=== PATIENT | female | born 1945 | race Caucasian/White ===

== ENCOUNTER 2017-10-15 10:07 | Inpatient (IN) | payer MEDICARE ==
[~2017-10-15] VITALS: Ht 172.7 cm; Wt 65.5 kg
--- NOTE | ~2017-10-15 | EC ---
PATIENT:EMMY SOLIS DATE OF SERVICE: 10/15/17 SEX: F MEDICAL RECORD: [id number] DATE OF : [birth year] LOCATION:D. D.211 AGE OF PATIENT: 72 ADMISSION DATE: 10/15/17 REFERRING PHYSICIAN: INTERPRETING PHYSICIAN: HUMBERTO BANGURA MD ECHOCARDIOGRAM REPORT ECHO CHARGES 4 ECHO COMPLETE Date: CLINICAL DIAGNOSIS: A-FIB ECHOCARDIOGRAPHIC MEASUREMENTS (adult normal given) AC root (d.<3.7cm) 2.7 cm LV Septum d (<1.2 cm> 1.2 cm Valve Excursion 1.6 cm LV Septum (systole) 1.6 cm Left Atria (s.<4.0cm> 4.3 cm LVPW d(<1.2cm) 1.2 cm RV (d.<2.3cm) 3.2 cm LVPW (sytole) 1.8 cm LV diastole(<5.6CM) 5.1 cm MV E-F(>70mm/sec) cm LV systole 3.6 cm LVOT Diameter 1.9 cm MV exc.(>10mm) cm Est.ejection fraction (50-75%) % DOPPLER: LVIT cm/sec A cm/sec E 136 cm/sec LA cm/sec RVSP 34.3 mmHg LVOT 68.0 cm/sec AOP1/2T m/s Asc. Ao 135 cm/sec RVOT 42.0 cm/sec RA cm/sec PA 51.0 cm/sec AV Gradient Peak 7.2 mmHg AV Mean 3.3 mmHg AV Area 1.2 cm MV Gradient Peak 7.0 mmHg MV Mean 2.3 mmHg MV Area cm COMMENTS: Talent Engineer: 1 PORSHA BRADDOCK Lunchroom Aide: 1 Dr. Bangura TAPE# PACS Pericardial Effusion N DATE OF SERVICE: FINDINGS: 1. Left ventricular chamber size is mildly dilated. Left ventricular systolic function is markedly reduced. Overall ejection fraction 20%. 2. Left atrium is enlarged at 4.3 cm. Right atrium and right ventricular chamber sizes are as well mildly dilated. 3. Valvular structures have normal structure and motion. 4. Doppler interrogation reveals moderate mitral regurgitation, moderate tricuspid regurgitation. No other valvular insufficiency or stenosis. ECHOCARDIOGRAM REPORT [id number] EMMY SOLIS Pulmonary systolic pressure is estimated at 34 mmHg. 5. No evidence of pericardial effusion or left ventricular thrombus. TRANSINT:[id number] Voice Confirmation ID: [id number] DOCUMENT ID: [id number] HUMBERTO BANGURA MD at 1056 CC: [id number] DICTATION DATE: 10/16/17 161 PEANUT BUTTER MAKER: 10/16/17 1629 DIS IN 10/19/17 [place] [id number] [place] [id number]
--- NOTE | ~2017-10-15 | CN ---
PATIENT NAME:EMMY ROQUE MEDICAL RECORD: [id number] : [birth year] LOCATION:. D.2112 ADMIT DATE: 10/15/17 ACCOUNT: [id number] CONSULTING PHYSICIAN: HUMBERTO ROSS MD REFERRING PHYSICIAN: JITENDRA FITZGERALD MD DATE OF CONSULTATION: 10/16/2017 DIAGNOSES: 1. Atrial fibrillation with rapid ventricular response. 2. Shortness of breath, dyspnea on exertion. 3. Generalized weakness. HISTORY OF PRESENT ILLNESS: Ms. Roque presents with shortness of breath, dyspnea on exertion, and overall weakness. This has been going on and off since June. She has a history of living in [facility] in 2014. At that time, she had a pulmonary embolus. Since then, she had atrial fibrillation. 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 She went off all the medications. Initially, her ejection fraction after the pulmonary embolus was in the 20% to 25% range. A year later, her ejection fraction was in the 60% range. 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 Since June, she felt on and off episodes of atrial fibrillation; however, over the past month, she has had more episodes that are still on and off and she presents with atrial fibrillation with rapid response. She was started on Cardizem drip. She is still in atrial fibrillation. The rate is controlled. She does agree to take traditional medications at this point. PHYSICAL EXAMINATION: GENERAL APPEARANCE: Well-nourished, well-developed, appears stated age. Level of distress, comfortable. PSYCHIATRIC: Mental status, alert, normal affect. Orientation, oriented to time, place and person. EYES: Lids and conjunctiva, noninjected. No discharge, no pallor. ENT: Lips, teeth, gums, normal dentition. Oropharynx, no cyanosis, no pallor. NECK: Carotid arteries, bilateral normal upstroke, no bruits, no thrills. JUGULAR VEINS: No jugular venous pressure or distention. CERVICAL LYMPH NODES: Nontender, nonenlarged. THYROID: Not enlarged. Nontender. No nodules. LUNGS: Respiratory effort, unlabored. CHEST: Normal curvature. No thoracic deformity. No chest wall tenderness. Percussion, resonant. Auscultation, clear. No wheezes, no rales, no rhonchi. CARDIOVASCULAR: Irregularly irregular in atrial fibrillation. EXTREMITIES: No cyanosis, no edema. Peripheral pulses, full and equal in all extremities, except as noted. No bruits appreciated. ABDOMEN: Soft, nondistended. Normal aorta. No bruit. Nontender. No masses. Liver, nontender, no hepatomegaly. Spleen, nontender, no splenomegaly. MUSCULOSKELETAL: No joint tenderness. No joint swelling. No erythema. NEUROLOGICAL: Normal gait, normal strength, normal tone. SKIN: Warm and dry. OVERALL IMPRESSION: Atrial fibrillation. We will start her on sotalol 120 mg b.i.d., discontinue the Cardizem drip as well, place her on Xarelto and we will see her back in clinic. I do not know how long she has been in atrial CONSULT REPORT [id number] EMMY ROQUE fibrillation this time, so we will plan for anticoagulation for 3 weeks prior to DC cardioversion. She may convert with the sotalol as she has had paroxysms of atrial fibrillation. We will get an echocardiogram today as well and then we will follow up as an outpatient. TRANSINT:[id number] Voice Confirmation ID: [id number] DOCUMENT ID: [id number] HUMBERTO ROSS MD at 1056 CC: [id number] DICTATION DATE: 10/16/17 0810 ESCAPEMENT MATCHER: 10/16/17 1110 DIS IN 10/19/17 [place] [id number] [place] [id number]
[2017-10-15 10:42] LABS: BASOPHILS 0.3 % (0-2); EOSINOPHILS 0.7 % (0-7); HEMATOCRIT 42.9 % (36.0-48.0); IMMATURE GRANULOCYTES 0.2 % (0-5); LYMPHOCYTES 20.1 % (15-50); MCH 33.6 pg (26.0-34.0); MCV 96.2 fL (80.0-100.0); MEAN PLATELET VOLUME 10.2 fL (7.4-10.4); MONOCYTES 7.7 % (2-11); PLATELET COUNT 270 10x3/uL (130-400); RBC 4.46 10x6/uL (4.00-5.40); RDW 13.5 % (11.5-14.5); WBC 9.4 10x3/uL (4.8-10.8)
[2017-10-15 10:55] LABS: INR 1.1 (0.85-1.17); PROTIME 13.8 SECONDS (11.6-15.0)
[2017-10-15 10:57] LABS: D-DIMER-QUANTITATIVE 0.71 ug/mLFEU (0.20-0.54)
[2017-10-15 11:02] LABS: ALBUMIN 3.5 g/dL (3.4-5.0); ALKALINE PHOSPHATASE 101 U/L (46-116); ALT (SGPT) 28 U/L (10-68); BILIRUBIN - TOTAL 0.85 mg/dL (0.2-1.3); CALC OSMOLALITY 284 mosm/kg (275-300); CALCIUM 8.7 mg/dL (8.5-10.1); CARBON DIOXIDE 20.4 mmol/L (21.0-32.0); CHLORIDE - SERUM 105 mmol/L (98-107); CREATININE - SERUM 0.8 mg/dL (0.6-1.3); GLUCOSE 165 mg/dL (74-106); POTASSIUM - SERUM 3.9 mmol/L (3.5-5.1); PROTEIN - SERUM 6.9 g/dL (6.4-8.2); SODIUM 141 mmol/L (136-145); UREA NITROGEN 13 mg/dL (7-18); eGFR NON AFRICAN AMERICAN 75 mL/min (90-120)
[2017-10-15 11:11] LABS: CREATINE KINASE 35 UL (21-215); PRO BNP 3779 pg/mL (0-125); TROPONIN-I < 0.017 ng/mL (0.000-0.060)
[2017-10-15 15:53] LABS: CKMB 0.8 U/L (0.0-3.6); CREATINE KINASE 42 UL (21-215)
[2017-10-15 15:59] LABS: TROPONIN-I 0.016 ng/mL (0.000-0.060)
[2017-10-15 18:00] VITALS: BP 143/93; BMI 25.1
[2017-10-15 21:53] LABS: CKMB 1.5 U/L (0.0-3.6); CREATINE KINASE 142 UL (21-215)
[2017-10-15 22:01] LABS: TROPONIN-I 0.017 ng/mL (0.000-0.060)
[2017-10-15 22:10] VITALS: BP 111/55; BP 158/68
[2017-10-16 03:04] LABS: BASOPHILS 0.3 % (0-2); EOSINOPHILS 3.4 % (0-7); HEMATOCRIT 39.9 % (36.0-48.0); HEMOGLOBIN 13.9 g/dL (12-16); IMMATURE GRANULOCYTES 0.2 % (0-5); LYMPHOCYTES 20.2 % (15-50); MCH 33.3 pg (26.0-34.0); MCHC 34.8 g/dL (31.0-37.0); MCV 95.5 fL (80.0-100.0); MEAN PLATELET VOLUME 10.1 fL (7.4-10.4); NEUTROPHILS 64.9 % (40-80); PLATELET COUNT 250 10x3/uL (130-400); RBC 4.18 10x6/uL (4.00-5.40); RDW 13.3 % (11.5-14.5)
[2017-10-16 03:26] LABS: CALC OSMOLALITY 278 mosm/kg (275-300); CALCIUM 8.4 mg/dL (8.5-10.1); CHLORIDE - SERUM 106 mmol/L (98-107); CKMB 0.8 U/L (0.0-3.6); CREATINE KINASE 40 UL (21-215); CREATININE - SERUM 0.7 mg/dL (0.6-1.3); GLUCOSE 124 mg/dL (74-106); SODIUM 140 mmol/L (136-145); TROPONIN-I 0.017 ng/mL (0.000-0.060); UREA NITROGEN 11 mg/dL (7-18); eGFR NON AFRICAN AMERICAN 87 mL/min (90-120)
[2017-10-16 03:30] LABS: POTASSIUM - SERUM 3.3 mmol/L (3.5-5.1)
[2017-10-16 06:34] VITALS: BP 122/71
[2017-10-16 13:02] LABS: MAGNESIUM - SERUM 1.7 mg/dL (1.8-2.4); T4 THYROXIN - FREE 1.46 ng/dL (0.76-1.46); THYROID STIMULATING HORMONE 1.42 uIU/mL (0.36-3.74)
[2017-10-16 18:30] LABS: CKMB 0.7 U/L (0.0-3.6); CREATINE KINASE 50 UL (21-215); TROPONIN-I < 0.017 ng/mL (0.000-0.060)
[2017-10-16 20:00] VITALS: BP 145/94
[2017-10-17 00:44] LABS: CREATINE KINASE 49 UL (21-215); TROPONIN-I 0.021 ng/mL (0.000-0.060)
[2017-10-17 05:11] LABS: APPEARANCE HAZY (CLEAR); BILIRUBIN NEGATIVE (NEGATIVE); COLOR DK YELLOW (YELLOW); GLUCOSE NEGATIVE (NEGATIVE); KETONE NEGATIVE (NEGATIVE); NITRITE NEGATIVE (NEGATIVE); PROTEIN NEGATIVE (NEGATIVE); UROBILINOGEN NORMAL (NORMAL)
[2017-10-17 05:46] LABS: BASOPHILS 0.6 % (0-2); EOSINOPHILS 5.1 % (0-7); IMMATURE GRANULOCYTES 0.2 % (0-5); LYMPHOCYTES 25.1 % (15-50); MCH 32.8 pg (26.0-34.0); MCHC 34.1 g/dL (31.0-37.0); MCV 96.1 fL (80.0-100.0); MEAN PLATELET VOLUME 10.2 fL (7.4-10.4); MONOCYTES 11.8 % (2-11); NEUTROPHILS 57.2 % (40-80); PLATELET COUNT 296 10x3/uL (130-400); RBC 4.58 10x6/uL (4.00-5.40); RDW 13.3 % (11.5-14.5); WBC 8.6 10x3/uL (4.8-10.8)
[2017-10-17 06:36] LABS: CALC OSMOLALITY 281 mosm/kg (275-300); CALCIUM 8.6 mg/dL (8.5-10.1); CHLORIDE - SERUM 104 mmol/L (98-107); CKMB 1.1 U/L (0.0-3.6); CREATINE KINASE 46 UL (21-215); CREATININE - SERUM 0.8 mg/dL (0.6-1.3); GLUCOSE 121 mg/dL (74-106); POTASSIUM - SERUM 3.4 mmol/L (3.5-5.1); SODIUM 140 mmol/L (136-145); TROPONIN-I 0.025 ng/mL (0.000-0.060); eGFR NON AFRICAN AMERICAN 75 mL/min (90-120)
[2017-10-17 06:37] LABS: UREA NITROGEN 17 mg/dL (7-18)
[2017-10-17 06:42] VITALS: BP 124/88
[2017-10-17 10:25] VITALS: BP 124/84
[2017-10-17 13:01] VITALS: BP 108/79
[2017-10-17 17:28] VITALS: BP 130/79
[2017-10-17 21:55] VITALS: BP 130/73
[2017-10-18 00:55] VITALS: BP 108/67
[2017-10-18 04:54] LABS: BASOPHILS 0.6 % (0-2); EOSINOPHILS 5.1 % (0-7); HEMATOCRIT 45.9 % (36.0-48.0); HEMOGLOBIN 15.8 g/dL (12-16); IMMATURE GRANULOCYTES 0.1 % (0-5); LYMPHOCYTES 31.2 % (15-50); MCH 33.2 pg (26.0-34.0); MCHC 34.4 g/dL (31.0-37.0); MCV 96.4 fL (80.0-100.0); MEAN PLATELET VOLUME 10.5 fL (7.4-10.4); MONOCYTES 10.1 % (2-11); NEUTROPHILS 52.9 % (40-80); PLATELET COUNT 301 10x3/uL (130-400); RBC 4.76 10x6/uL (4.00-5.40); RDW 13.4 % (11.5-14.5); WBC 8.2 10x3/uL (4.8-10.8)
[2017-10-18 05:02] LABS: CALC OSMOLALITY 283 mosm/kg (275-300); CALCIUM 8.7 mg/dL (8.5-10.1); CARBON DIOXIDE 27.4 mmol/L (21.0-32.0); CHLORIDE - SERUM 103 mmol/L (98-107); CREATININE - SERUM 0.8 mg/dL (0.6-1.3); GLUCOSE 122 mg/dL (74-106); POTASSIUM - SERUM 3.3 mmol/L (3.5-5.1); SODIUM 141 mmol/L (136-145); UREA NITROGEN 19 mg/dL (7-18); eGFR NON AFRICAN AMERICAN 75 mL/min (90-120)
[2017-10-18 05:48] VITALS: BP 109/76
[2017-10-18 10:28] VITALS: BP 108/62
[2017-10-18 13:17] VITALS: BP 113/58
[2017-10-18 14:32] VITALS: Ht 172.7 cm; Wt 65.5 kg
[2017-10-18 16:30] VITALS: BP 119/71
[2017-10-18 19:00] VITALS: BP 108/57
[2017-10-19 03:33] VITALS: BP 128/77
[2017-10-19 04:48] LABS: BASOPHILS 0.8 % (0-2); EOSINOPHILS 5.8 % (0-7); HEMOGLOBIN 15.8 g/dL (12-16); IMMATURE GRANULOCYTES 0.2 % (0-5); LYMPHOCYTES 33.1 % (15-50); MCH 33.1 pg (26.0-34.0); MCHC 34.3 g/dL (31.0-37.0); MCV 96.4 fL (80.0-100.0); MEAN PLATELET VOLUME 9.9 fL (7.4-10.4); MONOCYTES 9.7 % (2-11); NEUTROPHILS 50.4 % (40-80); PLATELET COUNT 327 10x3/uL (130-400); RBC 4.77 10x6/uL (4.00-5.40); RDW 13.2 % (11.5-14.5)
[2017-10-19 05:05] LABS: ANION GAP 9.2 mmol/L (8-16); CALCIUM 8.7 mg/dL (8.5-10.1); CARBON DIOXIDE 30.4 mmol/L (21.0-32.0); CREATININE - SERUM 0.9 mg/dL (0.6-1.3); POTASSIUM - SERUM 3.6 mmol/L (3.5-5.1)
[2017-10-19 07:44] VITALS: BP 139/94
[2017-10-19 11:01] VITALS: BP 174/52
[2017-10-19] MEDS ORDERED: XARELTO20 MG PO (12:30)
[2017-10-19] MEDS ORDERED: BETAPACE 120 M120 MG PO (12:31)
[2017-10-19] MEDS ORDERED: PROTONIX40 MG PO (12:31)
[2017-10-19] MEDS ORDERED: KLOR-CON 1010 MEQ PO (12:32)
[2017-10-19] MEDS ORDERED: LASIX40 MG PO (12:32)
== END 2017-10-19 16:30 | disposition home or self-care (01) | DRG 308 ==
LOC: D.ER 10:07 → D.EDHOLD 15:07 → D.M2 15:07
PROVIDERS: Family Medicine; Internal Medicine Nephrology
DX: I48.91 Unspecified atrial fibrillation (principal); I50.23 Acute on chronic systolic (congestive) heart failure; Z79.01 Long term (current) use of anticoagulants; Z86.711 Personal history of pulmonary embolism; I11.0 Hypertensive heart disease with heart failure; J44.9 Chronic obstructive pulmonary disease, unspecified; K59.00 Constipation, unspecified; Z72.0 Tobacco use